=== PATIENT | male | born 1955 | race Caucasian/White ===

== ENCOUNTER 2023-04-19 10:38 | Emergency (ER) | payer MEDICARE, SELFPAY ==
[2023-04-19 10:49] VITALS: BP 175/96; PULSE 73; RESP 18; TEMP 36.6; O2SAT 97; BMI 26.4
[2023-04-19 11:00] VITALS: RESP 18
--- NOTE | 2023-04-19 11:00 | XR_ITS ---
[address] [address] Patient Name: JAISON SCOTT MRN: [id number] date: 1955 Sex: M Assigned Patient Location: ER Current Patient Location: ER Accession/Order Number: [id number] Exam Date: 04/19/2023 11:25 Report Date: 04/19/2023 12:08 At the request of: YAYA LESTER Procedure: XR ribs LT min 3V w CXR1V EXAMINATION: XR ribs LT min 3V w CXR1V HISTORY: fall ; anterior left rib pain since falling one week ago COMPARISON: No relevant comparison available. FINDINGS: LUNGS: A few dense nodules favoring calcified granulomas. No acute infiltrates. PLEURA: No pneumothorax, effusion, or pleural thickening. MEDIASTINUM: No visible mass or adenopathy. CARDIAC: No cardiomegaly or cardiac silhouette abnormality. RIBS: Old healed fractures of the anterior lateral left ninth and 10th ribs. No appreciable acute fracture. OTHER: Negative. XR/XR ribs LT min 3V w CXR1V IMPRESSION: 1. No acute cardiopulmonary process. 2. No appreciable acute rib fracture. Electronically authenticated by: SUZIE GONZALEZ Date: 04/19/2023 12:08
--- NOTE | 2023-04-19 11:01 | ED_ITS ---
HPI - General Adult General Chief complaint: Back Pain/Injury Stated complaint: SHOULDER/RIB PAIN Time Seen by Provider: 04/19/23 10:54 Source: patient and family Mode of arrival: Wheelchair Limitations: physical limitation History of Present Illness HPI narrative: 68-year-old male presents for left-sided rib pain. Approximate five days ago he fell and hit left anterior lateral rib area on the furniture. He was seen at another hospital a few days ago and he states they did x-rays and he was told that there is nothing wrong. He continues to have pain. It seems to be moderate. He has chronic twitches and is on medication for that, though symptoms are unchanged. He doesn't complain of abdominal pain or back pain. No head injury. Related Data Allergies Allergy/AdvReac Type Severity Reaction Status Date / Time doxycycline [From Vibramycin] Allergy Unknown Verified 04/19/23 10:49 Review of Systems 2 ROS Narrative A ten point review of systems is negative except as noted above. PFSH PFS Social History Smoking status: Never smoker Exam Narrative Exam Narrative: Nurses note and vital signs reviewed and patient is not hypoxic. General: The patient appears to be in no apparent distress. He prefers to keep his eyes closed. Skin: Warm, dry, no pallor noted. There is no rash noted. Head: Normocephalic, atraumatic Eye: Normal conjunctiva, no drainage Ears, Nose, Mouth, and Throat: oral mucosa is moist. Nares patent. Cardiovascular: Regular Rate and Rhythm Respiratory: Patient is in no distress, no accessory muscle use, lungs are clear to auscultation, no wheezing, rales or rhonchi; he seems to have some tenderness on the left anterior superior rib region but there is no crepitus bruise or abrasion. Back: non-tender GI: soft and nontender including the left upper quadrant Musculoskeletal: The patient has no evidence of calf tenderness, no pitting edema, symmetrical pulses noted bilaterally Neurological: A&O x4, normal speech; he has frequent jerking motions Psychiatric: Cooperative Constitutional Vital Signs, click to edit/add: Last Vital Signs Temp 97.9 F 04/19/23 10:49 Pulse 73 04/19/23 10:49 Resp 18 04/19/23 11:00 BP 175/96 H 04/19/23 10:49 Pulse Ox 97 04/19/23 10:49 O2 Del Method Room Air 04/19/23 10:49 Course Vital Signs Vital signs: Vital Signs Temperature 97.9 F 04/19/23 10:49 Pulse Rate 73 04/19/23 10:49 Respiratory Rate 18 04/19/23 10:49 Blood Pressure 175/96 H 04/19/23 10:49 Pulse Oximetry 97 04/19/23 10:49 Oxygen Delivery Method Room Air 04/19/23 10:49 Temperature 97.9 F 04/19/23 10:49 Pulse Rate 73 04/19/23 10:49 Respiratory Rate 18 04/19/23 11:00 Blood Pressure 175/96 H 04/19/23 10:49 Pulse Oximetry 97 04/19/23 10:49 Oxygen Delivery Method Room Air 04/19/23 10:49 Medical Decision Making MDM Narrative Medical decision making narrative: Rib x-rays are negative. He was given IM Toradol. He was offered pain medication for home but states he doesn't want it. He is going to follow-up with his doctors. Findings were discussed with the patient and his family. Differential Diagnosis Differential Diagnosis: pneumothorax, rib fracture, chest contusion Imaging Data rib x-rays: Radiologist's impression: Procedure: XR ribs LT min 3V w CXR1V EXAMINATION: XR ribs LT min 3V w CXR1V HISTORY: fall ; anterior left rib pain since falling one week ago COMPARISON: No relevant comparison available. FINDINGS: LUNGS: A few dense nodules favoring calcified granulomas. No acute infiltrates. PLEURA: No pneumothorax, effusion, or pleural thickening. MEDIASTINUM: No visible mass or adenopathy. CARDIAC: No cardiomegaly or cardiac silhouette abnormality. RIBS: Old healed fractures of the anterior lateral left ninth and 10th ribs. No appreciable acute fracture. OTHER: Negative. IMPRESSION: 1. No acute cardiopulmonary process. 2. No appreciable acute rib fracture. Electronically authenticated by: SUZIE GONZALEZ Date: 04/19/2023 12:08 Discharge Plan Discharge Chief Complaint: Back Pain/Injury Clinical Impression: Chest wall contusion Patient Disposition: Home, Self-Care Time of Disposition Decision: 12:22 Condition: Good Mode of Transportation: Private Vehicle Instructions: Contusion in Adults (ED), Rib Contusion (ED) Stand Alone Forms: Portal Instructions Referrals: Physician,Non-Staff, MD [Primary Care Provider] - 1 week
[2023-04-19] MEDS: KETOROLAC TROMETHAMINE 60 MG/2 ML VIAL IM (11:10)
== END 2023-04-19 12:34 | disposition home or self-care (01) ==
PROVIDERS: Emergency Provider Emergency Medicine
DX: S20.212A Contusion of left front wall of thorax, initial encounter (principal); R25.3 Fasciculation; Z79.899 Other long term (current) drug therapy; W01.190A Fall on same level from slipping, tripping and stumbling with subsequent striking against furniture, initial encounter
CPT/HCPCS: 71101; 96372; 99284

== ENCOUNTER 2025-02-14 10:02 | Emergency (ER) | payer MEDICARE, MEDICAID, SELFPAY ==
[2025-02-14] VITALS (13 sets, daily range): BP systolic 140; BP diastolic 95–109; PULSE 64–88; TEMP 36.9; O2SAT 98–99; BMI 26.4
--- NOTE | 2025-02-14 10:30 | ECG_ITS ---
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 Measurements Intervals [place] Rate: 74 P: 65 AK: 158 QRS: -26 QRSD: 102 T: 69 QT: 386 QTc: 413 Interpretive Statements 1100 Sinus rhythm 7202 Moderate left axis deviation 9110 normal ECG Compared to ECG 09/13/2022 17:25:52 Left-axis deviation now present Incomplete right bundle-branch block no longer present Myocardial infarct finding no longer present Electronically Signed On 02-15-2025 15:36:42 EDT by SUSAN PLUNKETT M.D.
[2025-02-14 10:51] LABS: Hematocrit 42.1 % (42.0-54.0); Hemoglobin 14.0 g/dL (14.0-18.0); Immature Granulocytes Abs Auto 0.01 10^3/uL (0.00-0.03); Immature Granulocytes Pct Auto 0.2 % (0.0-0.5); Lymphocytes Absolute Auto 1.0 10^3/uL (1.2-3.8); Mean Corpuscular HGB Conc 33.3 g/dL (29.9-35.2); Mean Corpuscular Hemoglobin 29.5 pg (25.9-34.0); Mean Corpuscular Volume 88.8 fL (80.0-94.0); Platelet Count 233 10^3/uL (150-450); Red Blood Count 4.74 10^6/uL (4.70-6.10); White Blood Count 6.1 10^3/uL (4.0-11.0)
[2025-02-14 11:07] LABS: Alanine Aminotransferase 35 U/L (16-63); Albumin Globulin Ratio 1.1; Albumin Level 3.6 g/dL (3.4-5.0); Alkaline Phosphatase 98 U/L (46-116); Anion Gap 10.3; Aspartate Amino Transferase 25 U/L (15-37); Blood Urea Nitrogen 18.0 mg/dL (7.0-18.0); Calcium 9.2 mg/dL (8.5-10.1); Carbon Dioxide 30.1 mmol/L (21.0-32.0); Chloride 107 mmol/L (98-107); Estimated GFR (African America >60 (>=60 mL/min/1.73m^2); Estimated GFR (Non-African Ame >60 (>=60 mL/min/1.73m^2); Globulin 3.4 g/dL; Glucose 95 mg/dL (74-106); Potassium 4.4 mmol/L (3.5-5.1); Sodium 143 mmol/L (136-145); Total Protein 7.0 g/dL (6.4-8.2)
--- NOTE | 2025-02-14 11:29 | ED_ITS ---
HPI HPI - General Adult General Chief complaint: Extremity Problem, Nontraumatic Stated complaint: NIGHT SWEATS X'S WKS, INSOMNIA, BODY TWITCHES, R H Time Seen by Provider: 02/14/25 10:11 Source: patient Mode of arrival: walk-in Limitations: no limitations History of Present Illness HPI narrative: The patient is a 69-year-old male is coming to the ER with a main concern of swelling for the last 3 weeks, patient that he stopped all his medication including his antidepressant and pain medication that he had prescribed by his primary care and multiple ER visits, patient denies any specific pain or nausea vomiting or any other concerns He only endorses sweating at night although he is not very specific about this sweating that it started after or before he stopped all his medication including his SSRI Patient also mentioned that he have a history of wax problem in both ears Related Data Allergies Allergy/AdvReac Type Severity Reaction Status Date / Time doxycycline (From Vibramycin) Allergy Unknown Rash Verified 02/14/25 10:11 Opioid HPI Opioid Management Most Recent Opioid Data: Last Pain Scale 5 Today, 10:11 Review of Systems ROS Status of ROS 10 or more systems reviewed and unremark able except as noted in history and below PFSH PFSH Social History Smoking status: Never smoker Little interest or pleasure in doing things: not at all Feeling down, depressed, or hopeless: not at all Exam Narrative Exam Narrative: Nurses notes and vital signs reviewed and patient is not hypoxic. General: Well-appearing and in no apparent distress. Skin: Warm, dry, no pallor noted. No rash. Head: Normocephalic, atraumatic. Neck: Supple, non-tender. Eye: Pupils are equal, round and EOMI. No scleral icterus. Ears, Nose, Mouth, and Throat: The tympanic membrane bilaterally blocked by wax no other finding found on examination Cardiovascular: Regular Rate and Rhythm without murmur, gallop or rub. Respiratory: No accessory muscle use or respiratory distress. Lungs are clear to auscultation, no wheezing, rales or rhonchi Chest Wall: no tenderness Back: No midline thoracic or lumbar vertebral tenderness. No CVA tenderness Musculoskeletal: normal ROM, no calf or popliteal tenderness, no lower extremity edema/swelling GI: Abdomen is soft, non-distended. Normal bowel sounds. No masses appreciated. No tenderness to palpation. No rebound, guarding, or rigidity noted. Neurological: A&O x4. No cranial nerve dysfunction observed. No truncal ataxia. Moves all extremities. Sensation intact. Psychiatric: Cooperative and interactive. Normal mood and affect. Constitutional Vital Signs, click to edit/add: Last Vital Signs Temp 98.4 F 02/14/25 10:11 Pulse 70 02/14/25 11:46 Resp 14 02/14/25 11:46 BP 140/95 H 02/14/25 10:30 Pulse Ox 98 02/14/25 11:46 O2 Del Method Room Air 02/14/25 11:46 Course Vital Signs Vital signs: Vital Signs Blood Pressure 140/109 H 02/14/25 10:09 Temperature 98.4 F 02/14/25 10:11 Pulse Rate 70 02/14/25 11:46 Respiratory Rate 14 02/14/25 11:46 Blood Pressure 140/95 H 02/14/25 10:30 Pulse Oximetry 98 02/14/25 11:46 Oxygen Delivery Method Room Air 02/14/25 11:46 Medical Decision Making [facility] Narrative Medical decision making narrative: The patient EKG showing sinus rhythm with a heart rate of [address] elevation or depression The patient is not coming to the ER with any specific symptoms his symptoms of swelling could have been secondary to the fact that he had stopped his SSRI as w ell as the withdrawal symptoms but he does not want to be on any medication and he apparently has been fired by his primary care because he keeps the missing appointments I offered the patient Debrox eardrop and I also explained to him that his symptoms could be secondary to withdrawal but he does not want to be in any medication He had his bilateral ear irrigated in the ER after which he was feeling much better and he was discharged with referral to primary care The patient did mention to the caring nurse that 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 The patient agrees with the following Diagnosis and Treatment plan and the patient will be discharged home. Lab Data Labs: Lab Results 02/14/25 Range/Units 10:40 WBC 6.1 (4.0-11.0) 10^3/uL RBC 4.74 (4.70-6.10) 10^6/uL Hgb 14.0 (14.0-18.0) g/dL Hct 42.1 (42.0-54.0) % MCV 88.8 (80.0-94.0) fL MCH 29.5 (25.9-34.0) pg MCHC 33.3 (29.9-35.2) g/dL RDW 12.3 (11.0-15.0) % Plt Count 233 (150-450) 10^3/uL MPV 9.6 (9.5-13.5) fL Neut % (Auto) 67.1 (43.0-75.0) % Lymph % (Auto) 16.0 L (20.5-60.0) % Clarke % (Auto) 11.7 (1.7-12.0) % Eos % (Auto) 4.3 (0.9-7.0) % Baso % (Auto) 0.7 (0.2-2.0) % Neut # (Auto) 4.1 (1.4-6.5) 10^3/uL Lymph # (Auto) 1.0 L (1.2-3.8) 10^3/uL Clarke # (Auto) 0.7 (0.3-0.8) 10^3/uL Eos # (Auto) 0.3 (0.0-0.7) 10^3/uL Baso # (Auto) 0.0 (0.0-0.1) 10^3/uL Abs Immat Gran (auto) 0.01 (0.00-0.03) 10^3/uL Imm/Tot Granulo (auto) 0.2 (0.0-0.5) % Sodium 143 (136-145) mmol/L Potassium 4.4 (3.5-5.1) mmol/L Chloride 107 (98-107) mmol/L Carbon Dioxide 30.1 (21.0-32.0) mmol/L Anion Gap 10.3 BUN 18.0 (7.0-18.0) mg/dL Creatinine 1.06 (0.70-1.30) mg/dL Est GFR ( Amer) >60 (>=60 mL/min/1.73m^2) Est GFR (Non-Af Amer) >60 (>=60 mL/min/1.73m^2) BUN/Creatinine Ratio 17.0 Glucose 95 (74-106) mg/dL Calcium 9.2 (8.5-10.1) mg/dL Total Bilirubin 0.6 (0.2-1.0) mg/dL AST 25 (15-37) U/L ALT 35 (16-63) U/L Alkaline Phosphatase 98 (46-116) U/L Total Protein 7.0 (6.4-8.2) g/dL Albumin 3.6 (3.4-5.0) g/dL Globulin 3.4 g/dL Albumin/Globulin Ratio 1.1 Discharge Plan Discharge Chief Complaint: Extremity Problem, Nontraumatic Clinical Impression: Sweating, Excess ear wax Patient Disposition: Home, Self-Care Time of Disposition Decision: 11:28 Condition: Good Print Language: Niuean Instructions: Carbamide Peroxide (Into the ear) Referrals: Physician,Non-Staff, MD [Primary Care Provider] - 1 week Discharge Date/Time: 02/14/25 11:46
== END 2025-02-14 11:46 | disposition home or self-care (01) ==
PROVIDERS: Emergency Provider Emergency Medicine
DX: R61 Generalized hyperhidrosis (principal); H61.20 Impacted cerumen, unspecified ear
CPT/HCPCS: 36415; 80053; 85025; 93005; 99284